=== PATIENT | male | born 1980 | race African-American/Black ===

== ENCOUNTER 2022-03-06 00:37 | Emergency (ER) | payer BC ==
[~2022-03-06] VITALS: Ht 180.3 cm; Wt 94.5 kg
[2022-03-06 00:48] VITALS: TEMP 97.1
[2022-03-06 01:28] LABS: BASO % 0.3 % (0.0-2.0); EOS # 0.2 K/mm3 (0.0-0.7); EOS % 1.9 % (0.0-4.0); GRAN # 5.2 K/mm3 (1.4-6.5); GRAN % 52.2 % (42.2-75.2); HEMATOCRIT 40.6 % (42.0-52.0); HEMOGLOBIN 13.9 g/dl (13.5-18.0); LYMPH # 3.8 K/mm3 (1.2-3.4); LYMPH % 38.3 % (20.0-51.0); MEAN CELL VOLUME 87 fl (80.0-100.0); MEAN CORPUSCULAR HEMOGLOBIN 30 pg (27-31); MEAN CORPUSCULAR HGB CONC 34 g/dl (33.0-37.0); MEAN PLATELET VOLUME 9.7 fl (7.4-10.4); MONO # 0.7 K/mm3 (0.1-0.6); PLATELET COUNT 195 K/mm3 (130-400); RED BLOOD COUNT 4.66 M/mm3 (4.20-5.60); REDCELL DISTRIBUTION WIDTH-CV 13.8 % (11.5-14.5)
[2022-03-06 01:51] LABS: ALBUMIN 3.7 gm/dL (3.5-5.0); BILIRUBIN,TOTAL 0.4 mg/dL (0.2-1.2); CALCIUM 8.8 mg/dL (8.4-10.2); CREATININE, serum 1.31 mg/dL (0.72-1.25); POTASSIUM 3.6 mmol/L (3.5-4.5); TOTAL PROTEIN 7.1 gm/dL (6.2-8.1)
[2022-03-06 01:57] LABS: TROPONIN-I 0.028 ng/mL (0.00-0.033)
[2022-03-06 02:17] VITALS: BP 140/78; PULSE 76
== END 2022-03-06 02:17 | disposition home or self-care (01) ==
LOC: COL.ER 00:37
PROVIDERS: Emergency Medicine
DX: E86.0 Dehydration (principal); F17.210 Nicotine dependence, cigarettes, uncomplicated; Z20.822 Contact with and (suspected) exposure to COVID-19; Z28.310 Unvaccinated for COVID-19
CPT/HCPCS: J7030

== ENCOUNTER → 2022-04-29 | Outpatient (CLI) | payer BC ==
[~2022-04-29] MED LIST: FLEXERIL 1010 MG/TAB PO; MOBIC 7.5MG7.5 MG PO
== END ==
LOC: MHCPAIN 10:04
DX: M54.9 Dorsalgia, unspecified (principal); M25.551 Pain in right hip; M25.552 Pain in left hip; M79.2 Neuralgia and neuritis, unspecified; R93.89 Abnormal findings on diagnostic imaging of other specified body structures
CPT/HCPCS: G0463

== ENCOUNTER → 2022-05-03 | Outpatient (CLI) | payer BC | LOC: COL.RAD 16:33 | DX: M25.552 Pain in left hip (principal); M25.551 Pain in right hip ==

== ENCOUNTER 2022-05-04 21:25 | Emergency (ER) | payer BC ==
[~2022-05-04] VITALS: Ht 180.3 cm; Wt 91.4 kg
[2022-05-04 21:42] VITALS: BP 117/76; TEMP 97.9
[2022-05-04 22:17] LABS: COLLECTION METHOD CLEAN CATCH
[2022-05-04 22:23] LABS: URINE APPEARANCE Clear (CLEAR/HAZY); URINE BLOOD Negative (NEGATIVE); URINE COLOR Yellow (YELLOW); URINE GLUCOSE TRACE (NEGATIVE); URINE KETONE Negative (NEGATIVE); URINE NITRATE Negative (NEGATIVE); URINE PROTEIN(semi-quant) TRACE (NEGATIVE); URINE UROBILINOGEN 0.2 E.U/dL (0.2-1.0)
[2022-05-04 22:24] LABS: MUCOUS Present (NOT PRESENT); SQUAMOUS EPITHELIAL 0-2 /hpf (0-10); URINE BACTERIA None Seen /hpf (NONE SEEN); URINE RBC 0-2 /hpf (0-2)
[2022-05-04] MEDS ORDERED: MOBIC 7.5MG7.5 MG PO (22:42)
[2022-05-04] MEDS ORDERED: FLEXERIL 1010 MG/TAB PO (22:42)
[2022-05-04 22:57] VITALS: PULSE 68
== END 2022-05-04 22:57 | disposition home or self-care (01) ==
LOC: COL.ER 21:25
PROVIDERS: Nurse Practitioner Primary Care
DX: M62.830 Muscle spasm of back (principal); M16.12 Unilateral primary osteoarthritis, left hip; F17.290 Nicotine dependence, other tobacco product, uncomplicated; Z28.310 Unvaccinated for COVID-19
CPT/HCPCS: J1885